=== PATIENT | female | born 1960 | race Hispanic/Latino ===

== ENCOUNTER 2021-10-05 10:42 | Outpatient (CLI) | payer BC | END 2021-10-05 10:43 | disposition home or self-care (01) | LOC: LABHHL 10:42 | PROVIDERS: ATTEND Otolaryngology Otology & Neurotology | DX: J34.2 Deviated nasal septum (principal); J34.3 Hypertrophy of nasal turbinates; J32.0 Chronic maxillary sinusitis | CPT/HCPCS: 88305; 88311 ==